=== PATIENT | male | born 1945 | race Caucasian/White ===

== ENCOUNTER 2024-07-31 05:31 | Day surgery (SDC) | payer MEDICARE, OTHER ==
[2024-07-24 11:50] LABS: BASOPHILS % (AUTO) 0.8 % (0-1); EOSINOPHILS # (AUTO) 0.1 X10'3 (0-0.9); EOSINOPHILS % (AUTO) 1.1 % (0-6); LYMPHOCYTES # (AUTO) 1.7 X10'3 (1.1-4.8); LYMPHOCYTES % (AUTO) 30.5 % (21-51); MEAN CORPUSCULAR HEMOGLOBIN 30.1 PG (27.0-31.0); MEAN CORPUSCULAR HGB CONC 33.8 g/dL (33.0-36.5); MEAN CORPUSCULAR VOLUME 88.8 FL (78-98); MEAN PLATELET VOLUME 11.1 FL (7.4-10.4); MONOCYTES # (AUTO) 0.6 X10'3 (0-0.9); MONOCYTES % (AUTO) 11.2 % (2-12); NEUTROPHILS # (AUTO) 3.2 X10'3 (1.8-7.7); NEUTROPHILS % (AUTO) 56.4 % (42-75); PRE OP HEMATOCRIT 42.5 % (42.0-52.0); PRE OP HEMOGLOBIN 14.4 g/dL (14.0-17.9); PRE OP PLATELET COUNT 131 X10'3 (140-440); PRE OP WHITE BLOOD COUNT 5.7 10'3 (4.8-10.8); RED BLOOD COUNT 4.79 X10'6 (4.70-6.10)
[2024-07-24 12:15] LABS: LARGE PLATELETS FEW; PLATELET ESTIMATE DECREASED
[2024-07-24 12:16] LABS: ALBUMIN 3.2 G/DL (3.4-5.0); ALBUMIN/GLOBULIN RATIO 1.1 (1.1-1.5); ALKALINE PHOSPHATASE 99 IU/L (46-116); BLOOD UREA NITROGEN 19 MG/DL (7-18); BUN/CREATININE RATIO 16.4 (10.0-20.0); CALCIUM 8.2 MG/DL (8.5-10.1); CHLORIDE 111 MMOL/L (99-107); CREATININE 1.16 MG/DL (0.60-1.10); PRE OP ALT 31 U/L (30-65); PRE OP ANION GAP 7 (8-16); PRE OP AST 20 U/L (10-37); PRE OP BILIRUB, TOTAL 0.5 MG/DL (0.0-1.0); PRE OP GLUCOSE 79 MG/DL (70-104); PRE OP POTASSIUM 4.4 MMOL/L (3.4-5.1); PRE OP SODIUM 147 MMOL/L (135-145); TOTAL CARBON DIOXIDE 28.8 MMOL/L (24-32); eGFR 61 ML/MIN
[2024-07-31] VITALS (21 sets, daily range): BP systolic 125–164; BP diastolic 69–86; PULSE 50–60; RESP 10–16; TEMP 97.7–97.9; O2SAT 93–100
[~2024-07-31] VITALS: Ht 182.9 cm; Wt 97.7 kg
[~2024-07-31 05:31] MED LIST: AMIO200T72 PO; APIX5TAB3 PO; ATOR40TA72 PO; CHOL500050 PO; DOCUMENT DATE & TIME OF BETA-BLOCKER PO ONE; LEVO50TA8 PO; METO50TA16 PO; TAMS-55 PO; VALA100031 PO
[2024-07-31] MEDS: famotidine 20mg tablet PO ONE (06:02)
[2024-07-31] MEDS: ringers solution, lacted 1,000 ML IV SCH (06:03)
[2024-07-31] MEDS: ceFAZolin 2gm in dextrose, iso 50 ML IV ONE (06:03)
[2024-07-31] MEDS ORDERED: CefTRIAXone 2gm/D5W 50ml BAG 50 ML IV ONE (07:05)
[2024-07-31] MEDS ORDERED: fentaNYL/PF 50MCG/1 ML 2ML syringe ONE (07:16)
[2024-07-31] MEDS ORDERED: midazolam 1 mg/ML 2ml injection ONE (07:16)
[2024-07-31] MEDS ORDERED: propofol inj 20 ML IV ONE (07:16)
[2024-07-31] MEDS ORDERED: sevoflurane 250ml liquid IH ONE (07:17)
[2024-07-31] MEDS ORDERED: ondansetron/PF 4mg/2ml inj ONE (07:41)
[2024-07-31] MEDS ORDERED: dexamethasone sod phosphate 4mg/ml inj. ONE (07:41)
[2024-07-31] MEDS ORDERED: ondansetron/PF 4mg/2ml inj IV PRN (07:55)
[2024-07-31] MEDS ORDERED: ringers solution, lacted 1,000 ML IV SCH (07:55)
[2024-07-31] MEDS ORDERED: HYDROmorphone/PF 0.2 MG/ML SYRINGE IV PRN (07:55)
[2024-07-31] MEDS ORDERED: morphine 4 MG/ML inj SYRINge IV PRN (07:55)
--- NOTE | 2024-07-31 08:07 | OPERATIVE REPORT ---
Operative Report Providers to ~ Date of Procedure: July 31, 2024 Pre-Operative Diagnosis: Benign prostatic hypertrophy Post-Operative Diagnosis SAME as PRE-Op Procedure Performed Trans urethral resection of the prostate. Surgeon: Adrian Pena MD Guest Relations Receptionist None. Anesthesiologist: Gonzalo Roesnthal Type of Anesthesia: General Findings: Endoscopic findings: The patient demonstrated enlarged lateral lobes and a mild circumferential intravesical prostatic protrusion. Obstructive tissue was resected circumferentially taking care to spare bladder neck fibers and the external urinary sphincter. The prostate capsule was never encountered or perforated. Complications None. Estimated Blood Loss: Minimal. Specimen Removed: Prostate chips. Description of Procedure: The patient was under the effects of general anesthesia and in dorsal lithotomy with his genitals prepped and draped in sterile fashion. The urethra was entered with a 26 Swiss continuous flow resectoscope and we appreciated the above-mentioned anatomy. His bladder had moderate trabeculations and scattered shallow diverticula with cellule formation. Through the working element we placed a bipolar band which was used to resect prostate tissue starting at the bladder neck and extending distally to the verumontanum. Care was taken to spare bladder neck fibers and the external urinary sphincter. Once sufficient tissue was resected circumferentially we performed point electrocautery to attain hemostasis. Prostate chips were then evacuated from the bladder. His bladder was then filled to capacity and with the scope removed Crede pressure was applied and we observed a strong force of stream. We then placed a [address] urinary catheter into the bladder with 20 mL instilled into the retaining balloon. He was placed on continuous irrigation and crystal clear drainage was observed. Counts repoted as correct: Yes ADRIAN PENA MD July 31, 2024 08:07
[2024-07-31] MEDS: morphine 2 MG/ML inj. syringe IV PRN (08:34)
[2024-07-31] MEDS: HYDROmorphone/PF 0.2 MG/ML SYRINGE IV PRN (08:56)
== END 2024-07-31 10:56 | disposition home or self-care (01) ==
LOC: PAS 05:31
PROVIDERS: ATTEND Urology
DX: N40.1 Benign prostatic hyperplasia with lower urinary tract symptoms (principal); I25.10 Atherosclerotic heart disease of native coronary artery without angina pectoris; N13.8 Other obstructive and reflux uropathy; I48.91 Unspecified atrial fibrillation; E03.9 Hypothyroidism, unspecified; Z79.01 Long term (current) use of anticoagulants; Z79.899 Other long term (current) drug therapy; Z98.890 Other specified postprocedural states; Z90.49 Acquired absence of other specified parts of digestive tract; Z87.442 Personal history of urinary calculi
CPT/HCPCS: 36415; 52601; 80053; 82948; 85025; 88305; A4355; A4618; A5200; J0696; J1100; J1171; J2250; J2270; J2405; J2704; J3010; J7030; J7120; Z7506; Z7512; Z7610; 85008